=== PATIENT | female | born 1950 ===

== ENCOUNTER → 2017-06-04 | Outpatient (CLI) | payer MEDICARE, OTHER ==
[2017-06-04 19:54] LABS: Free Thyroxine 0.99 ng/dL (0.70-1.60)
[2017-06-04 19:57] LABS: Thyroid Stimulating Hormone 6.12 uIU/mL (0.360-4.800)
== END ==
LOC: LAB SHORT 10:14
PROVIDERS: Nurse Practitioner Adult Health
DX: E03.9 Hypothyroidism, unspecified (principal)
CPT/HCPCS: 84439; 84443

== ENCOUNTER → 2017-07-31 | Outpatient (CLI) | payer MEDICARE, OTHER ==
[2017-08-01 10:43] LABS: Free Thyroxine 1.22 ng/dL (0.70-1.60)
[2017-08-01 10:49] LABS: Thyroid Stimulating Hormone 0.571 uIU/mL (0.360-4.800)
== END ==
LOC: LAB 14:16
PROVIDERS: Nurse Practitioner Adult Health
DX: E03.9 Hypothyroidism, unspecified (principal)
CPT/HCPCS: 84439; 84443